=== PATIENT | female | born 1990 | race Two or more races ===

== ENCOUNTER 2024-11-14 16:21 | Inpatient (IN) | payer SELFPAY ==
[2024-11-14] VITALS (44 sets, daily range): BP systolic 111–141; BP diastolic 60–80; PULSE 75–99; RESP 18–99; TEMP -22–36.9; O2SAT 97–100; BMI 34.6
[2024-11-14] MEDS: ACETAMINOPHEN 325 MG TABLET 650 MG PO (17:22)
[2024-11-14] MEDS: RINGERS LACTATED 1000 ML 1,000 ML 999 ML IV (17:23)
--- NOTE | 2024-11-14 17:59 | ESHP_ITS ---
Documentation for date of: 11/14/24 OB Labor/Induct. HPI History of Present Illness Chief complaint: contractions, headache : 3 Para: 2 Term pregnancies: 2 pregnancies: 0 Living children: 2 History of Abortions: Spontaneous and Elective: 0 History of Vaginal deliveries: 0 History of sections: Yes History of : No SHANE: 11/23/24 Gestational Age (weeks): 38 Gestational Age (days): 5 History of present illness: Patient has had a headache for the past 2-3 hours. Has also been having increasingly regular/painful ctx. No LOF. No vaginal bleeding. Normal movement. No vision changes or RUQ pain. No hx of bp disorders. History of Present Adequate Care: Yes Narrative: Patient reports having regular OB care in [place] up until her recent vacation in the . She recently finished a 5 day course of amoxicillin for UTI. Taking metformin for A2GDM (vs T2DM) since April. 2 prior sections, first was scheduled for post-dates and then repeat was done for macrosomia in the setting of GDM (patient endorses infant was 5kg and stayed 3 day in NICU). She had BTL with reversal prior to this . Labs Narrative: Care was in [place]. Labs brought in by patient were reviewed and normal to include negative HIV and RPR. She is Rh positive. HgbA1c in April was 7.5. Ultrasound performed 11/04 shows 3500g. Posterior placenta. Review of Systems Review of Systems Systems Reviewed: All systems reviewed, normal except as documented Narrative Review of Systems: Positive only for Headache and contractions No vision changes, no seizure or syncope No RUQ pain Past Medical History Past Medical History CARDIAC: Negative Hypertension Family History OTHER FAMILY HX: Family history non-contributory Surgical History SURGICAL: Positive Tubal Ligation and Section OTHER SURGICAL HX: Tubal ligation reversal Social History SOCIAL: , good support, lives in [place] SMOKING STATUS: Never smoker SUBSTANCE USE: does not use Past Medical History Comments PMH COMMENT: History of gestational diabetes in prior as well as current Meds Home Medications and Allergies Home Medications ?Medication ?Instructions ?Recorded ?Confirmed ?Type metformin 850 mg tablet 850 mg PO BID 11/14/24 11/14/24 History Allergies Allergy/AdvReac Type Severity Reaction Status Date / Time No Known Allergies Allergy Verified 11/14/24 17:18 OB Exam Physical Exam Vital signs: Temp Pulse Resp BP 98.5 F 75 18 126/60 11/14/24 17:14 11/14/24 17:14 11/14/24 17:14 11/14/24 17:14 Narrative: General: well developed, well nourished, no acute distress, conversant Cardiac: normal heart rate Lungs: breathing without distress Abdomen: soft, gravid, non-tender, no rebound or guarding Extremities: no pain with palpation of calves, no edema of BLE SCE by Dr. Carney (with RN field technical support consultant): 4/80/-2, mid, soft, intact Detailed Labor and Delivery Exam Dilation (cm): 4 Effacement (%): 80 Cervix position: mid station: -2 Consistency: soft Presentation: Vertex Membranes: intact Baseline heart rate: 150 monitor decelerations: None termite renewal inspector variability: Moderate (11-25) Contraction frequency (min): irregular OB Results Labs 11/14/24 18:49 OB Assessment & Plan Assessment and Plan (1) History of delivery: Status: Acute (2) Gestational diabetes: Status: Acute (3) Active labor at term: Status: Acute Additional Plan Additional Plan Comment: Patient is a 34yo with SIUP at 38w5d by lmp presenting with ctx and headache. Vitals wnl, benign exam. Reassuring assessment. SCE 4/80/-2, mid/soft. care: good care in [place], limited records available and reviewed. Growth scan 11/04 showed 3500g. Indication for section: active labor with history of 2 prior sections in the setting of A2GDM vs T2DM on metformin Last ate (chicken) at 1500. Plan: -Admit to L&D -Establish IV, draw labs -NPO -Counseled/consented re: repeat section with RN as exhibition specialist. Discussed all r/b/a to include: bleeding (possible need for blood transfusion), infection (subcutaneous, deeper layers or uterine with possible need for prolonged admission or re-admission for IV antibiotics, I&D with wound packing, etc), injury to nearby structures such as bladder, bowel, ureters, blood vessels, nerves with possible need for re-operation, pain, injury to baby, hysterectomy, DVT/PE. Answered all questions to patient and their support person's satisfaction. -IV abx ppx: Anceph 2g IV -Nursing and anesthesia team aware of plan for section. Will proceed to OR when team is ready (2) Gestational diabetes Qualifiers: Gestational diabetes mellitus control: oral hypoglycemic-controlled T rimester: third trimester Qualified Code(s): O24.415 - Gestational diabetes mellitus in , controlled by oral hypoglycemic drugs
[2024-11-14 19:14] LABS: Basophils % (Auto) 0 % (0-2.5); Eosinophils # (Auto) 0.1 Thou/mm3 (0.0-0.5); Eosinophils % (Auto) 2 % (0-10); Hematocrit 35.6 % (36.0-46.0); Immature Granulocytes % (Auto) 1 % (0-0); Immature Granulocytes Auto 0.03 Thou/mm3 (0.00-0.00); Lymphocytes # (Auto) 1.7 Thou/mm3 (1.0-4.8); Lymphocytes % (Auto) 26 % (10-50); Mean Corpuscular HGB Conc 33.7 g/dl (31.0-37.0); Mean Corpuscular Hemoglobin 26.4 pg (25.0-35.0); Mean Corpuscular Volume 78 fL (80-100); Monocytes # (Auto) 0.5 Thou/mm3 (0.0-0.8); Monocytes % (Auto) 8 % (0-12); Neutrophils # (Auto) 4.1 Thou/mm3 (1.8-7.7); Neutrophils % (Auto) 64 % (37-80); Nucleated Red Blood Cell % 0 /100 WBC (0); Platelet Count 162 Thou/mm3 (140-440); RDW Standard Deviation 40.4 fL (36.4-46.3); Red Blood Count 4.54 Miln/mm3 (4.00-5.20); White Blood Count 6.4 Thou/mm3 (3.6-11.0)
[2024-11-14] MEDS: RINGERS LACTATED 1000 ML 1,000 ML 125 ML IV ×2 (19:41→21:23)
[2024-11-14] MEDS: TERBUTALINE SULF INJ 1 MG/ML VIAL 0.25 MG SC (21:01)
[2024-11-14] MEDS: ceFAZolin/D5W 2 GM IV 2 GM/100 ML BAG IV (21:17)
[2024-11-14] MEDS: METOCLOPRAMIDE INJ 5 MG/ML VIAL 2 ML 10 MG IVP (21:18)
[2024-11-14] MEDS: FAMOTIDINE INJ 10 MG/ML VIAL 2 ML 20 MG IV (21:18)
[2024-11-14 21:46] LABS: Amphetamine/Metham Scrn,Ur OB Negative (Negative); Benzoylecgonine Screen, Ur OB Negative (Negative); Opiate Screen,Urine OB Negative (Negative); THC Screen,Urine OB Negative (Negative)
--- NOTE | 2024-11-14 23:17 | ESOP_ITS ---
Operative Note - SUBSTATION MANAGER Procedure Date of procedure: 11/14/24 Procedure Performed: Repeat low transverse section Indication: Kaitlynn is a 34yo [id number] with history of 2 prior sections who presented in active labor at term with contractions and SCE 4/80/-2. care in [place]. otherwise only complicated by A2GDM vs T2DM on metformin. Pre-Op diagnosis: SIUP at 38w5d in active labor History of 2 prior sections A2GDM vs T2DM on metformin History of bilateral tubal ligation with reversal care in [place] Post-Op diagnosis: SIUP at 38w5d in active labor History of 2 prior sections A2GDM vs T2DM on metformin History of bilateral tubal ligation with reversal care in [place] Anesthesia type: Spinal Procedure description: After obtaining informed consent, the patient was taken to the operating room. T here was reassuring heart rate tracing prior. Spinal anesthesia was administered. A abdi catheter was placed and bilateral sequential compression devices were placed. She was then prepped and draped in the normal sterile fashion in the dorsal supine position with left lateral tilt. A timeout was performed to confirm patient name, date of , procedure and indication. The team was in agreement. Spinal anesthesia was found to be adequate using an Allis clamp. Anceph 2g IV x1 were given for prophylaxis. A Pfannenstiel skin incision was then made with the scalpel and carried through to the underlying layer of fascia. The fascia was incised in the midine and the incision was extended laterally with the Benito scissors. The superior and inferior aspects of the fascial incision were then grasped with the Trey clamps, elevated and the underlying rectus muscles were dissected off bluntly and sharply. The peritoneum was entered digitally and the rectus muscles were then in the midline. The peritoneal incision was then extended superiorly and inferiorly with good visualization of the bladder. An Everett retractor was placed. The lower uterine segment was scored in a transverse fashion with the scalpel. The uterus was then entered bluntly and the incision was extended with traction with clear amniotic fluid noted. The infant's head was elevated to the level of the incision. Fundal pressure was applied. The head was delivered atraumatically in the OA position. The anterior shoulder, posterior shoulder and corpus were delivered without difficulty. The nose and mouth were suctioned with bulb suction and cord was clamped x2 and cut. The infant was handed off to the awaiting nursing team. Cord blood obtained for typing. The placenta was then removed with uterine massage and cord traction. The uterus was exteriorized and cleared of all clot and debris. The uterine incision was repaired with 0-vicryl suture in a running locking fashion. A second layer of interrupted sutures using O-vicryl was used to closed the hysterotomy incision in an imbricating fashion. The uterine incision was inspected and hemostasis was noted. In addition to standard IV pitocin, patient received TXA 1g IV x1 and methergine 0.2mg IM x1 with good tone eventually achieved. The posterior cul-de-sac was suctioned and the uterus returned to the abdomen. The gutters were cleared of all clot. Everett retractor was removed. The peritoneum was closed using a 3-0 vicryl suture in running fashion. The rectus muscles were inspected and small areas of oozing were cauterized. The fascia was reapproximated with 0-Vicryl suture in a running fashion. The subcutaneous tissue was then irrigated. Tone's fascia was reapproximated using 3-0 vicryl suture in a running fashion. The skin was closed using 4-0 monocryl suture in running subcuticular fashion. The incision was cleaned with a wet lap and dried with a dry lap. Afhizygvp-rsjogliuwlw-oqyz bandage was applied overlying the incision and activated according to clinical programmer instructions. The vagina was cleared of all blood clots without active bleeding noted. Fundus was firm at the umbilicus. Sponge, lap and needle counts were correct x2. The procedure was without complications and the patient tolerated the procedure well. She was taken to recover further on Labor and Delivery, in stable condition. Fluid amount (mL): 3,000 Urine output (mL): 100 Estimated blood loss (ml): 700 Findings: Scarring in subcutaneous/fascial layers consistent with prior sections. Male infant in cephalic presentation, apgars 9/9, 3840g. Normal appearing uterus and ovaries. Right fallopian tube appears interrupted but left fallopian tube appears intact. Complications: none Surgical staff Operation Date: 11/14/24 21:55 Case Staff EKG/ECG TECHNICIAN: Bello Aldrich RN First Assistant: Ellen Arrieta Diagnosis Problem List Completed Was Problem List Reviewed/Reconciled?: Yes
--- NOTE | 2024-11-14 23:43 | XR_ITS ---
Examination: AP chest single view Technique one AP portable upright chest single view Exam date and time: November 14, 1999 2552 hours Indications: Coughing beginning 2 weeks ago. Findings: Heart size normal No pneumonia The osseous structures are intact Impression: No active disease
[2024-11-15] VITALS (11 sets, daily range): BP systolic 110–146; BP diastolic 70–88; PULSE 67–86; RESP 16–21; TEMP 36.8–37; O2SAT 95–98
[2024-11-15] MEDS: KETOROLAC INJ 30 MG/ML VIAL IVP ×2 (00:49→14:32)
[2024-11-15] MEDS: OXYTOCIN in NS 20 units 20 UNIT/1,000 ML BAG 125 UNIT IV (00:50)
[2024-11-15 02:17] LABS: HIV (1&2) Antibody Rapid Non-Reactive
[2024-11-15 05:30] LABS: Basophils % (Auto) 0 % (0-2.5); Eosinophils # (Auto) 0.1 Thou/mm3 (0.0-0.5); Eosinophils % (Auto) 1 % (0-10); Hematocrit 32.1 % (36.0-46.0); Hemoglobin 10.9 g/dL (12.0-16.0); Immature Granulocytes % (Auto) 1 % (0-0); Immature Granulocytes Auto 0.04 Thou/mm3 (0.00-0.00); Lymphocytes # (Auto) 1.8 Thou/mm3 (1.0-4.8); Lymphocytes % (Auto) 21 % (10-50); Mean Corpuscular Hemoglobin 26.8 pg (25.0-35.0); Mean Corpuscular Volume 79 fL (80-100); Monocytes # (Auto) 0.4 Thou/mm3 (0.0-0.8); Monocytes % (Auto) 5 % (0-12); Neutrophils # (Auto) 6.1 Thou/mm3 (1.8-7.7); Neutrophils % (Auto) 73 % (37-80); Nucleated Red Blood Cell % 0 /100 WBC (0); Platelet Count 126 Thou/mm3 (140-440); RDW Standard Deviation 40.9 fL (36.4-46.3); Red Blood Count 4.07 Miln/mm3 (4.00-5.20); White Blood Count 8.4 Thou/mm3 (3.6-11.0)
[2024-11-15] MEDS: HYDROcodone/APAP 5/325 TABLET 1 TAB PO (09:03)
[2024-11-15] MEDS: RINGERS LACTATED 1000 ML 1,000 ML 125 ML IV (09:03)
[2024-11-15 10:45] LABS: Chlamydia trachomatis PCR Negative (Not Detect); Neisseria Gonorrhoeae DNA PCR Negative (Not Detect); Trichomonas Negative (Negative)
--- NOTE | 2024-11-15 13:15 | ESPR_ITS ---
Subjective Subjective Interval history: Kaitlynn is doing really well. Sitting up at bedside, abdi removed nearly 2 hours ago. Hasn't yet met due to void. She notes pain is well controlled. No dizziness with ambulation. Tolerating PO intake without issue. No nausea/vomiting. No chest pain or shortness of breath. Exam Vital Signs Temp Pulse Resp BP Pulse Ox O2 Del Method 98.4 F 75 16 129/74 95 Room Air 11/15/24 08:01 11/15/24 08:01 11/15/24 08:01 11/15/24 08:01 11/15/24 08:01 11/15/24 08:01 Narrative Exam General: well developed, well nourished, no acute distress, conversant (ship pilot dispatcher present for visit) Cardiac: normal heart rate Lungs: breathing without distress Abdomen: soft, post-gravid, non-tender, no rebound or guarding, non-distended. Prineo bandage is clean/intact/dry overlying pfannenstiel incision Extremities: no pain with palpation of calves, trace edema of BLE Objective Labs 11/15/24 04:55 Labs: Laboratory Results - last 24 hr 11/14/24 11/14/24 11/15/24 18:49 21:12 04:55 WBC 6.4 8.4 RBC 4.54 4.07 Hgb 12.0 10.9 L Hct 35.6 L 32.1 L MCV 78 L 79 L MCH 26.4 26.8 MCHC 33.7 34.0 RDW Std Deviation 40.4 40.9 Plt Count 162 126 L D Neut % (Auto) 64 73 Lymph % (Auto) 26 21 [place] % (Auto) 8 5 Eos % (Auto) 2 1 Baso % (Auto) 0 0 Neut # (Auto) 4.1 6.1 Lymph # (Auto) 1.7 1.8 [place] # (Auto) 0.5 0.4 Eos # (Auto) 0.1 0.1 Baso # (Auto) 0.0 0.0 Immature Gran # (Auto) 0.03 H 0.04 H Absolute Nucleated RBC 0.00 0.00 Immature Gran % 1 H 1 H Nucleated RBC % 0 0 Urine Opiates Screen Negative U Amphetamin/Meth Scrn Negative U Cocaine Metab Screen Negative U Marijuana (THC) Screen Negative Chlam trachomat DNA PCR Negative HIV 1&2 Antibody Rapid Non-Reactive N.gonorrhoeae DNA (PCR) Negative Trichomonas DNA Probe Negative Blood Type O Positive Antibody Screen NEGATIVE Blood Bank Wristband ID Yes Assessment & Plan Problem List (1) History of delivery: Status: Acute (2) Gestational diabetes: Status: Acute (3) Active labor at term: Status: Acute Assessment Comment Assessment comment: Patient is a 34yo [id number] s/p uncomplicated RLTCS after presenting in labor, doing well on POD 1. Vitals wnl, benign exam. Hemodynamically stable with no evidence of infection. Appropriate change in H/H. complicated by A2GDM vs T2DM on metformin. Fasting glucose values have been within range. PNC in [place]. Plan: -Continue routine /post-op care -Awaiting due to void within 6 hours of abdi removal -Diabetic diet -Ok to discontinue fingerstick glucose checks since they have been in range -Encourage ambulation and use of IS -Anticipate discharge home tomorrow if meeting all milestones Time Spent With Patient Time: Total time spent is greater than 50% in coordination of care (as documented) at patient's floor/unit and/or counseling patient:
[2024-11-15 16:53] LABS: Syphilis Nonreactive (Nonreactive)
[2024-11-15] MEDS: IBUPROFEN TAB 400 MG TABLET 800 MG PO (21:13)
[2024-11-16 00:10] VITALS: BP 123/77; PULSE 77; RESP 18; TEMP 36.7; O2SAT 97
[2024-11-16 01:16] LABS: Hepatitis B Surface Antigen Non Reactive (Non React); Rubella, IgG Antibody Equivocal
[2024-11-16] MEDS: IBUPROFEN TAB 400 MG TABLET 800 MG PO (05:40)
[2024-11-16 07:40] VITALS: BP 130/72; PULSE 79; RESP 18; TEMP 36.8; O2SAT 99
--- NOTE | 2024-11-16 08:45 | ESDS_ITS ---
DS: Providers Provider Date of admission: 11/14/24 18:10 Primary care physician: Physician No Primary/Family Admitting Provider: Iza Carney MD Attending Provider on Admission: Iza Carney MD Consults: 11/14/24 23:51 Referral Routine Comment: Attending Provider on DC: Iza Carney MD Discharging Provider: Iza Carney MD DS: Diagnosis Discharge Diagnosis (1) Active labor at term: Status: Acute (2) Gestational diabetes: Status: Acute (3) History of delivery: Status: Acute Problem List Completed Was Problem List Reviewed/Reconciled?: Yes Summary/Hosp Course Brief History: Kaitlynn is a 34yo [id number] s/p uncomplicated RLTCS after presenting in labor, doing well on POD 2. Vitals wnl, benign exam. Hemodynamically stable with no evidence of infection. Appropriate change in H/H. complicated by A2GDM vs T2DM on metformin. Fingerstick glucose values were within range. PNC in [place]. Patient feels ready for discharge home. Plan: -Discharge home -Discussed return precautions for fevers/chills/myalgias, increasing pain relate d to incision or uterus, signs of incision infection, heavy vaginal bleeding -Follow up in 1 week in the [facility] for bandage removal, appointment to be facilitated prior to discharge -Prescriptions to pharmacy: motrin 800mg PO Q8hr prn, norco 5/325mg PO Q6hr prn, miralax 17g PO daily to prevent constipation Peripartum Data Delivery Method: Low Transverse Procedures: Procedures Operation Date: 11/14/24 21:55 Actual Procedure Side Surgeon p in OB Not Applicable Rico Hall MD complications: none Status at Discharge Functional status at discharge: independent ambulation Overall status at discharge: patient is back to baseline Time Spent with Patient Time attestation: Total time spent providing and/or coordinating discharge services: Time spent: Less than 30 minutes Specific discharge activities: vaginal rest and no heavy lifting greater than 10 pounds for 6 weeks, no driving while taking narcotic Exam Vital Signs Temp Pulse Resp BP Pulse Ox O2 Del Method 98.2 F 79 18 130/72 99 Room Air 11/16/24 07:40 11/16/24 07:40 11/16/24 07:40 11/16/24 07:40 11/16/24 07:40 11/16/24 07:40 Narrative Exam General: well developed, well nourished, no acute distress, conversant Cardiac: normal heart rate Lungs: breathing without distress Abdomen: soft, post-gravid, non-tender, no rebound or guarding, pfannenstiel incision covered by dry/intact/clean dressing with no erythema/induration/drainage Extremities: no pain with palpation of calves, no BLE edema Discharge Plan Plan Patient Disposition: HOME (Self Care) Patient condition on transfer: Stable Health Concerns: Gestational diabetes vs Pre-existing diabetes on metformin during . Will need follow up 2 hour glucose testing 6 weeks pospartum. Prescriptions/Referrals Prescriptions/Med Rec: New hydrocodone-acetaminophen 5-325 mg Tablet 1 tab PO Q6H MDD 4 tabs PRN (Reason: Patient rated pain 7 to 8) 10 Days Qty: 12 0RF ibuprofen 400 mg Tablet 800 mg PO Q8HR 10 Days Qty: 20 0RF polyethylene glycol 3350 [Miralax] 17 gram powder in packet 17 g PO QDAY Qty: 14 0RF Discontinued metformin 850 mg Tablet 850 mg PO BID Referrals: No Primary/Family,Physician [Primary Care Provider] - Patient/Caregiver Discharge Instructions Discharge Activity: activity as tolerated and other Other Discharge Activity Instructions:: Vaginal rest and no heavy lifting more than 10 pounds for 6 weeks, no driving while taking narcotic Other Discharge Diet Instructions: Diabetic diet Education Materials: C Section Dc, Gestational Diabetes After ... Print Language: [place] Activity Restrictions/Additional Instructions: Keep incision clean and dry. Shower as normal, letting soapy water fall over incision without scrubbing. Pat dry well after. Dressing to be removed in 1 week in clinic. Stand Alone Forms: [facility] Award Info., Patient Portal Info Letter Discharge Order Discharge Orders: Discharge (Routine); Ordered 11/16/24 Ordered By: Iza Carney Planned Discharge Date 11/16/24 (2) Gestational diabetes Qualifiers: Gestational diabetes mellitus control: oral hypoglycemic-controlled Trimester: third trimester Qualified Code(s): O24.415 - Gestational diabetes mellitus in , controlled by oral hypoglycemic drugs
--- NOTE | 2024-11-16 10:53 | PC.NURSE ---
Patient cleared by Rl in social worker delinquency prevention
--- NOTE | 2024-11-16 12:07 | PC.SS ---
RECREATION INSTRUCTOR conducted bedside contact with the patient to address nursing referral indicating patient was late to care. RECREATION INSTRUCTOR utilized translation services to assist with discussion. Present with patient was Cy LAN. Patient confirmed late to care due to the patient?s presence in [place] at the time. Patient visiting family in the [place] area upon delivery of infantMk. Patient on [place] allowing visitation. Patient stated receiving consistent OB care in [place]. Patient plans on returning to [place] once infant stable for transport. Infant is the patient?s 3rd child. Children?s ages are 12 and 7 years old. Patient is not aligned with WIC, SNAP or TANF. Patient denies Patient denies history of alcohol/drug abuse. Patient denies CWS intervention. Patient denies episodes of domestic violence. Patient denies possessing a history of mental health, reports no current possession of depression or anxiety. Patient plans on combo feeding the . Patient has access to appropriate supplies and equipment; to include a car seat. FOB will provide transportation upon discharge. Patient describes possessing support system consisting of FOB and extended family. RECREATION INSTRUCTOR provided the patient with community resources to social security office. No further intervention required at this time, administrator social welfare will be available to address any further concerns. RECREATION INSTRUCTOR updated bedside nurse.
== END 2024-11-16 13:10 | disposition home or self-care (01) | DRG 788 ==
LOC: S4SX 18:53 → S4NX 11-15 06:58 → S4SX 11-15 08:25
PROVIDERS: Obstetrics & Gynecology; Admitting Provider Obstetrics & Gynecology; Visit Provider Obstetrics & Gynecology
PROC: (CPT 59514; principal; 2024-11-14 21:40)
DX: O34.211 Maternal care for low transverse scar from previous cesarean delivery (principal); O24.429 Gestational diabetes mellitus in childbirth, unspecified control; Z37.0 Single live birth; Z3A.38 38 weeks gestation of pregnancy
CPT/HCPCS: 36415; 59025; 71045; 80307; 85025; 86703; 86762; 86780; 86850; 86900; 86901; 87340; 87491; 87591; 87661; 94664; 94762; A4649; J0689; J1885; J2210; J2274; J2405; J2590; J2765; J3010; J3105; J3490; J7120; A9270; J2270